=== PATIENT | male | born 1980 | race Caucasian/White ===

== ENCOUNTER → 2016-09-22 | Outpatient (CLI) | payer BC ==
--- NOTE | 2016-09-22 15:18 | DIAGNOSTIC IMAGING REPORT ---
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 COMPARISON STUDY: No previous studies for comparison. FINDINGS: No radiopaque intraorbital foreign bodies are visualized. IMPRESSION: No radiopaque intraorbital foreign bodies are visualized Electronically signed by: Jasvir Nails M.D. 09/22/2016 3:16 PM Dictated Date/Time: 09/22/2016 3:15 PM
--- NOTE | 2016-09-22 15:55 | DIAGNOSTIC IMAGING REPORT ---
MRI OF THE LUMBAR SPINE WITHOUT CONTRAST CLINICAL HISTORY: Back pain. Right-sided radiculopathy. COMPARISON STUDY: No previous studies for comparison. TECHNIQUE: Utilizing a 1.5 Arely magnet and dedicated coil, multiplanar, multiecho imaging of the lumbar spine was performed without IV contrast. FINDINGS: For purposes of numbering on this exam, the L5-S1 disc space is assigned to image 23 of 25. Alignment of the lumbar spine is anatomic. Vertebral body heights are maintained. There is no intracanalicular mass or fluid collection. The conus terminates at the upper L1 level. Paravertebral soft tissues are unremarkable. L1-2: The central canal and neural foramen are patent. L2-3: The central canal and neural foramen are patent. L3-4: The central canal and neural foramen are patent. L4-5: The central canal and neural foramen are patent. L5-S1: There is disc space narrowing. There is a disc bulge with superimposed central/right paracentral disc protrusion that results in marked narrowing of the right lateral recess and moderate narrowing of the central aspect of the canal. There is mild narrowing of the right neural foramen. IMPRESSION: 1. Moderate to large central/right paracentral disc protrusion at L5-S1 that results in severe narrowing of the right lateral recess and moderate narrowing of the central canal. Mass effect upon the descending right S1 nerve root. Mild right neural foraminal narrowing at this level. 2. No additional significant abnormalities within the lumbar spine. Electronically signed by: James Zuniga M.D. 09/22/2016 3:53 PM Dictated Date/Time: 09/22/2016 3:49 PM
== END | disposition home or self-care (01) ==
LOC: C.MRI 14:46
PROVIDERS: ATTEND Family Medicine
DX: M54.10 Radiculopathy, site unspecified (principal); R20.2 Paresthesia of skin; H05.53 Retained (old) foreign body following penetrating wound of bilateral orbits; M51.27 Other intervertebral disc displacement, lumbosacral region; M48.07 Spinal stenosis, lumbosacral region